=== PATIENT | female | born 1955 | race Caucasian/White ===

== ENCOUNTER 2018-06-29 14:19 | Observation (INO) | payer OTHER ==
[2018-06-29] MEDS: SOD CHLORIDE 0.9% 1,000 ML IV ×3 (14:54→15:58)
[2018-06-29] MEDS: ONDANSETRON 4 MG INJ IV (15:58)
[2018-06-29] MEDS: morphine 4 MG/ML VIAL IV (15:58)
[2018-06-29] MEDS: ASPIRIN 325 MG TAB PO (15:59)
[2018-06-29] MEDS: NITROGLYCERIN (SL) 0.4 MG TAB SL ×3 (15:59→22:14)
[2018-06-29 16:12] LABS: ADD MAN DIFF? NO
[2018-06-29 16:16] LABS: WHITE BLOOD COUNT 10.4 10^3/ul (4.8-10.8)
[2018-06-29 16:16] LABS: BASOPHIL # 0.1 10^3/ul (0.0-0.1); BASOPHILS % 0.5 % (0.0-2.0); EOSINOPHILS # 0.1 10^3/ul (0.0-0.5); EOSINOPHILS % 0.8 % (0.0-7.0); HEMATOCRIT 39.6 % (37.0-47.0); HEMOGLOBIN 12.7 g/dl (12.0-16.0); LYMPHOCYTES # 2.2 10^3/ul (0.8-2.9); LYMPHOCYTES % 20.7 % (15.0-51.0); MEAN CORPUSCULAR HEMOGLOBIN 28.5 pg (29.0-33.0); MEAN CORPUSCULAR HGB CONC 32.1 g/dl (32.0-37.0); MEAN CORPUSCULAR VOLUME 88.8 fl (82.0-101.0); MEAN PLATELET VOLUME 12.1 fl (7.4-10.4); MONOCYTES % 9.6 % (0.0-11.0); NEUTROPHIL # 7.1 10^3/ul (1.6-7.5); NEUTROPHILS % 68.1 % (39.0-77.0); PLATELET COUNT 286 10^3/UL (140-415); RED BLOOD COUNT 4.46 10^6/ul (4.20-5.40); RED CELL DISTRIBUTION WIDTH 13.4 % (11.5-14.5)
[2018-06-29 16:20] LABS: INR 0.94; PROTIME 12.7 Sec (11.9-14.9)
[2018-06-29 16:21] LABS: PARTIAL THROMBOPLASTIN TIME 32.6 Sec (23.0-35.0)
[2018-06-29 16:23] LABS: ALANINE AMINOTRANSFERASE 25 IU/L (13-69); ALBUMIN 4.3 g/dl (3.3-4.9); ALKALINE PHOSPHATASE 126 IU/L (42-121); ANION GAP 14 (8-16); ASPARTATE AMINO TRANSFERASE 27 IU/L (15-46); BILIRUBIN,INDIRECT 0.2 mg/dl (0-1.1); BILIRUBIN,TOTAL 0.2 mg/dl (0.2-1.3); BLOOD UREA NITROGEN 14 mg/dl (7-20); CALCIUM 9.5 mg/dl (8.4-10.2); CARBON DIOXIDE 23 mmol/L (21-31); CHLORIDE 109 mmol/L (97-110); CREATINE KINASE 85 IU/L (23-200); CREATININE 0.59 mg/dl (0.44-1.00); GLUCOSE 96 mg/dl (70-220); POTASSIUM 3.6 mmol/L (3.5-5.1); SODIUM 142 mmol/L (135-144); TOTAL PROTEIN 8.2 g/dl (6.1-8.1)
[2018-06-29 16:35] LABS: B-TYPE NATRIURETIC PEPTIDE 98 PG/ML (0-125); CK-MB 0.89 ng/ml (0.0-2.4); TROPONIN-I < 0.012 ng/ml (0.000-0.120)
[2018-06-29] MEDS: IOHEXOL 100 ML (17:07)
[2018-06-29] MEDS: SOD CHLORIDE 0.9% 100 ML (17:07)
[2018-06-29] MEDS ORDERED: ALBUTEROL/IPRATROPIUM (NEB) 3 ML AMP HHN (18:00)
[2018-06-29] MEDS ORDERED: ONDANSETRON 4 MG INJ IV ×2 (18:00)
[2018-06-29] MEDS ORDERED: morphine 2 MG INJ IV (18:00)
[2018-06-29] MEDS ORDERED: NACL 0.9% 3 ML SYG IV (18:00)
[2018-06-29] MEDS ORDERED: LORAZEPAM 2 MG INJ IV (18:00)
[2018-06-29] MEDS ORDERED: ACETAMINOPHEN 325 MG TAB PO ×2 (18:00)
[2018-06-29] MEDS ORDERED: hydrALAzine 20 MG INJ IV (18:00)
[2018-06-29] MEDS ORDERED: NITROGLYCERIN (SL) 0.4 MG TAB SL (18:00)
[2018-06-29] MEDS ORDERED: MAGNESIUM HYDROXIDE 30ML CUP PO (18:00)
[2018-06-29] MEDS ORDERED: NA PHOSPHATE/BIPHOS 133 ML ENEMA PR (18:00)
[2018-06-29] MEDS ORDERED: HYDROCODONE/APAP (5/325) TAB PO (18:00)
[2018-06-29] MEDS ORDERED: DOCUSATE SODIUM 100 MG CAP PO (18:00)
[2018-06-29 18:58] LABS: FREE T4 (FREE THYROXINE) 1.44 ng/dl (0.78-2.44)
[2018-06-29 19:25] LABS: CREATINE KINASE 73 IU/L (23-200)
[2018-06-29 19:39] LABS: CK-MB 0.73 ng/ml (0.0-2.4); TROPONIN-I < 0.012 ng/ml (0.000-0.120)
[2018-06-29] MEDS: ERGOCALCIFEROL 50,000 UNIT CAP PO (21:28)
[2018-06-29] MEDS: BENAZEPRIL 10 MG TAB PO (21:29)
[2018-06-29] MEDS: SOD CHLORIDE 0.45% 1,000 ML IV (21:32)
[2018-06-29] MEDS: HEPARIN 5,000 UNIT/0.5 ML VIAL SC (21:42)
[2018-06-30 00:31] LABS: CK-MB 0.68 ng/ml (0.0-2.4); TROPONIN-I < 0.012 ng/ml (0.000-0.120)
[2018-06-30 00:51] LABS: CREATINE KINASE 65 IU/L (23-200)
[2018-06-30 06:54] LABS: ADD MAN DIFF? NO
[2018-06-30 06:56] LABS: BASOPHILS % 0.8 % (0.0-2.0); EOSINOPHILS # 0.1 10^3/ul (0.0-0.5); EOSINOPHILS % 1.7 % (0.0-7.0); HEMOGLOBIN 11.6 g/dl (12.0-16.0); LYMPHOCYTES # 1.4 10^3/ul (0.8-2.9); LYMPHOCYTES % 26.7 % (15.0-51.0); MEAN CORPUSCULAR HEMOGLOBIN 28.6 pg (29.0-33.0); MEAN CORPUSCULAR HGB CONC 32.2 g/dl (32.0-37.0); MEAN CORPUSCULAR VOLUME 88.7 fl (82.0-101.0); MEAN PLATELET VOLUME 12.2 fl (7.4-10.4); MONOCYTE # 0.6 10^3/ul (0.3-0.9); MONOCYTES % 11.6 % (0.0-11.0); NEUTROPHIL # 3.1 10^3/ul (1.6-7.5); PLATELET COUNT 239 10^3/UL (140-415); RED BLOOD COUNT 4.06 10^6/ul (4.20-5.40)
[2018-06-30 06:56] LABS: WHITE BLOOD COUNT 5.3 10^3/ul (4.8-10.8)
[2018-06-30] MEDS: SOD CHLORIDE 0.45% 1,000 ML IV (07:00)
[2018-06-30 07:10] LABS: HEMOGLOBIN A1C 5.7 % (0-5.9)
[2018-06-30 07:14] LABS: CHOL/HDL RATIO 2.8 RATIO; HDL CHOLESTEROL 50 mg/dl (35-98); LDL CHOLESTEROL,CALCULATED 75 mg/dl; TRIGLYCERIDES 93 mg/dl (0-149)
[2018-06-30 07:14] LABS: CHOLESTEROL 144 mg/dl (100-200)
[2018-06-30 07:18] LABS: ANION GAP 12 (8-16); BLOOD UREA NITROGEN 11 mg/dl (7-20); CALCIUM 8.8 mg/dl (8.4-10.2); CARBON DIOXIDE 24 mmol/L (21-31); CHLORIDE 109 mmol/L (97-110); CREATININE 0.55 mg/dl (0.44-1.00); GLUCOSE 107 mg/dl (70-220); MAGNESIUM 2.2 mg/dl (1.7-2.5); PHOSPHORUS 4.2 mg/dl (2.5-4.9); POTASSIUM 3.7 mmol/L (3.5-5.1); SODIUM 141 mmol/L (135-144)
[2018-06-30] MEDS: FAMOTIDINE 20 MG TAB PO (08:37)
[2018-06-30] MEDS: ASPIRIN (EC) 325 MG TAB PO (08:37)
[2018-06-30] MEDS: HEPARIN 5,000 UNIT/0.5 ML VIAL SC (08:59)
[2018-06-30] MEDS: BENAZEPRIL 10 MG TAB PO (09:00)
== END 2018-06-30 12:55 | disposition home or self-care (01) ==
LOC: TEL 20:21 → E/R 14:19 → TEL 17:33
DX: R07.9 Chest pain, unspecified (principal); E11.9 Type 2 diabetes mellitus without complications; I10 Essential (primary) hypertension; E78.00 Pure hypercholesterolemia, unspecified
CPT/HCPCS: 71045; 71275; 80048; 80053; 80061; 82550; 82553; 83036; 83735; 83880; 84100; 84439; 84443; 84484; 85025; 85610; 85730; 93005; 93306; 96374; 96375; 99285-25; G0378